=== PATIENT | male | born 1980 | race Two or more races ===

== ENCOUNTER 2020-09-06 06:24 | Emergency (ER) | payer SELFPAY ==
[2020-09-06 08:17] LABS: HEMOGLOBIN 15.5 gm/dl (14.0-17.5); RED BLOOD COUNT 4.89 M/UL (4.20-5.50); WHITE BLOOD COUNT 10.8 K/UL (4.5-11.0)
[2020-09-06 08:34] LABS: BUN/CREATININE RATIO 27 (0-10)
[2020-09-06] MEDS ORDERED: TOPROL XL 25 MG25 MG PO (09:00)
== END 2020-09-06 09:10 | disposition home or self-care (01) ==
LOC: ER1 06:24
PROVIDERS: Family Medicine
DX: R04.0 Epistaxis (principal); I16.0 Hypertensive urgency
CPT/HCPCS: 30901; 36415; 80053; 85025; 85610; 96374; 99283